=== PATIENT | female | born 1970 | race American Indian/Alaskan Native ===

== ENCOUNTER 2017-02-11 15:24 | Outpatient (CLI) | payer OTHER ==
--- NOTE | 2017-02-12 12:55 | Mammography Report ---
BILATERAL DIGITAL SCREENING MAMMOGRAM with CAD: 02/11/17 15:24:00 CLINICAL: Routine screening. COMPARISON:None. FINDINGS: The breasts are almost entirely fatty. No mass, architectural distortion or suspicious calcifications. IMPRESSION: No mammographic evidence of malignancy. BI-RADS CATEGORY: 1 - - Negative RECOMMENDATION: Routine mammographic screening in one year. COMMENT: Patient follow-up letters are generated by our [employer] application.
== END 2017-02-11 15:25 | disposition home or self-care (01) ==
LOC: MAMMO 15:24
PROVIDERS: ATTEND Nurse Practitioner Family
DX: Z12.31 Encounter for screening mammogram for malignant neoplasm of breast (principal)
CPT/HCPCS: 77067; G0202

== ENCOUNTER 2019-02-27 13:34 | Outpatient (CLI) | payer OTHER ==
--- NOTE | 2019-02-27 16:19 | Mammography Report ---
DIGITAL SCREENING MAMMOGRAM WITH CAD, 02/27/2019 INDICATION: Routine screening mammography. TECHNIQUE: Digital bilateral 2D mammography was obtained in the craniocaudal and mediolateral obliq ue projections. This examination was interpreted with the benefit of Computer-Aided Detection analysi s. COMPARISON: 02/11/2017 FINDINGS: Breast Density: The breasts are almost entirely fatty. A left outer asymmetry on the CC view acquired additional imaging. No architectural distortion or elissa picious calcifications of the left breast. There is no evidence of dominant mass, suspicious calcific ations or architectural distortion in the right breast. IMPRESSION: Left asymmetry requiring additional imaging. Recommend recall for left spot magnification CC view and left breast ultrasound if needed. Follow up recommendation: Special View: Mag Category 0: Incomplete. Needs additional imaging evaluation and/or prior mammograms for comparison. A "normal" or negative report should not discourage follow up or biopsy of a clinically significant f inding. A written summary of these findings will be mailed to the patient. The patient will be entered into a mammography reporting system which will generate a reminder letter for the patient's next appointmen t at the appropriate interval. The [employer] recommends yearly mammograms starting at age 40 and continuing as l henny as a woman is in good health. Breast MRI is recommended for women with an approximate 20-25% or greater lifetime risk of breast cancer, including women with a strong family history of breast or ova aiden cancer or who have been treated for Hodgkin's disease. Signer Name: Freddy Díaz MD Signed: 02/27/2019 4:14 PM Workstation Name: [id number]
== END 2019-02-27 13:35 | disposition home or self-care (01) ==
LOC: MAMMO 13:34
PROVIDERS: ATTEND Family Medicine
DX: Z12.31 Encounter for screening mammogram for malignant neoplasm of breast (principal); N64.89 Other specified disorders of breast
CPT/HCPCS: 77067